=== PATIENT | female | born 2000 | race Two or more races ===

== ENCOUNTER 2024-11-25 21:49 | Emergency (ER) | payer BC, SELFPAY ==
[2024-11-25 21:54] VITALS: BP 152/96
[2024-11-26 01:38] VITALS: BP 150/94
--- NOTE | 2024-11-26 01:42 | ED.SKININJ ---
HPI-Injury
General
Chief Complaint: Skin Problem
Source: patient
Exam Limitations: none
Time Seen by Provider: 11/26/24 01:27
History of Present Illness-Injury
Initial Injury comments:
24-year-old female presents with enlarging rash to the right thigh she sustained starting a week ago. The rash does not itch or hurt. No fevers. She does note slight headache and slight fatigue. She was tested for Lyme which was negative however
she has been on doxycycline for 5 days. No vomiting. No other complaints at this time
Phy Exam
Physical Exam
Physical Exam:
General: Well-appearing female no acute respiratory distress
HEENT: Normocephalic atraumatic
Skin: Erythematous rash in the circular fashion with central clearing noted over the right medial thigh without underlying fluctuance or induration. No lymphangitic streaking or drainage.
Course
Vital Signs
Initial and Last Documented VS:
Initial Vital Signs
Temp Pulse Resp BP Pulse Ox
98.2 F 94 18 152/96 100
11/25/24 21:54 11/25/24 21:54 11/25/24 21:54 11/25/24 21:54 11/25/24 21:54
Last Documented Vital Signs
Temp Pulse Resp BP Pulse Ox
98.2 F 76 18 150/94 100
11/25/24 21:54 11/26/24 01:38 11/26/24 01:38 11/26/24 01:38 11/26/24 01:38
MDM/Problems Addressed
Differential Diagnosis Includes:
Rash right leg. Suspect erythema migrans. Recent Lyme test negative but she is on doxycycline. Will extend this for another week. No abscess to drain. No fever or systemic illness.
*Critical Care Note
Total Time (30-74mins, 75-104mins- exclusive of procedures): Not Applicable
ED Attending Note
-
Portions of this chart may have been created with voice recognition software.� Occasional wrong word or��sound alike� substitutions may have occurred due to the inherent limitations of voice recognition software.
Discharge Plan
Departure
Patient Disposition: Home (Routine Discharge)
Date of Disposition: 11/26/24
Time of Disposition: 01:46
Patient with high blood pressure during this ER visit?: No
Discharge Problem:
Rash
Instructions: Skin Rash (DC)
Prescriptions:
New
doxycycline hyclate 100 mg tablet
100 mg PO BID Qty: 14 0RF
Activity Restrictions/Additional Instructions:
Take antibiotics as directed. Please return here for worsening symptoms otherwise follow-up with your doctor
Interventions
Interventions:
*Risk Screen - Suicide Last Done: 11/26/24 01:40
*General Assessment Last Done: 11/26/24 01:40
*Neglect/Abuse Screening Last Done: 11/26/24 01:40
*ED- Fall Risk Assessment Last Done: 11/26/24 01:40
*ED COVID-19 Vaccine History Last Done: 11/26/24 01:40
ED-Skin Assessment Last Done: 11/26/24 01:41
Discharge Date and Time
Print Language: SWEDISH
== END 2024-11-26 01:55 | disposition home or self-care (01) ==
LOC: EMR 21:49
PROVIDERS: EMERGENCY PHYSICIAN Emergency Medicine
DX: R21 Rash and other nonspecific skin eruption (principal); R51.9 Headache, unspecified; R53.83 Other fatigue
CPT/HCPCS: 99283